=== PATIENT | male | born 1955 | race Caucasian/White ===

== ENCOUNTER 2018-10-22 21:51 | Outpatient (REF) | payer BC, SELFPAY ==
[2018-10-22 22:22] LABS: Anion Gap 10.1 mmol/L (3-11); BUN 12 mg/dL (7-18); CO2 26.9 mmol/L (21.0-32.0); CREATININE 1.14 mg/dL (0.70-1.30); Calcium 8.9 mg/dL (8.5-10.1); Chloride 102 mmol/L (98-107); Cholesterol 150 mg/dL (50-200); Glucose 98 mg/dL (70-100); HDL Cholesterol 61 mg/dL (40-60); LDL CHOLESTEROL 83 mg/dL (<100); Potassium 4.3 mmol/L (3.5-5.1); Sodium 139 mmol/L (136-145)
[2018-10-22 22:28] LABS: Triglyceride > 25 mg/dL (30-150)
== END 2018-10-22 22:11 ==
LOC: NCHCN 21:51
PROVIDERS: Internal Medicine; PCP Internal Medicine; Visit Provider Internal Medicine
DX: I10 Essential (primary) hypertension (principal); B07.8 Other viral warts; L98.9 Disorder of the skin and subcutaneous tissue, unspecified; H91.93 Unspecified hearing loss, bilateral; Z00.00 Encounter for general adult medical examination without abnormal findings; Z12.5 Encounter for screening for malignant neoplasm of prostate; N40.0 Benign prostatic hyperplasia without lower urinary tract symptoms
CPT/HCPCS: 80048; 80061; 83721; 84153

== ENCOUNTER 2021-06-02 16:20 | Outpatient (REF) | payer MEDICARE, BC, SELFPAY ==
[2021-06-02 21:08] LABS: HCT 43.3 % (40.0-50.0); HGB 14.6 g/dL (13.5-17.5); MCHC 33.7 % (32.0-36.0); MCV 85.9 fL (80-95); MPV 12.3 fL (8.0-11.0); Nucleated RBC 0 %; Platelet Count 218 10^3/uL (130-400); RBC 5.04 10^6/uL (4.36-5.78); RDW 15.4 % (11.8-14.1); RDW-SD 48.3 fL; WBC 7.27 10^3/uL (4.4-10.8)
[2021-06-02 21:33] LABS: ALT 24 U/L (16-63); AST 17 U/L (15-37); Albumin 4.4 g/dL (3.4-5.0); Alkaline Phosphatase 60 U/L (46-116); Anion Gap 7.9 mmol/L (3-11); BUN 18 mg/dL (7-18); Bilirubin, Total 0.6 mg/dL (0.2-1.0); CO2 28.1 mmol/L (21.0-32.0); CREATININE 1.1 mg/dL (0.70-1.30); Calcium 9.1 mg/dL (8.5-10.1); Chloride 106 mmol/L (98-107); Glucose 115 mg/dL (74-106); Potassium 4.5 mmol/L (3.5-5.1); Sodium 142 mmol/L (136-145); Total Protein 7.4 g/dL (6.4-8.2)
[2021-06-02 21:39] LABS: Absolute Lymphocyte Count 1.96 10^3/uL (1.2-3.4); Absolute Monocyte Count 1.82 10^3/uL (0.1-0.8); Absolute Neutrophil Count 3.49 10^3/uL (1.2-6.7); Diff Comment Manual Differential; RBC Morphology Normal
[2021-06-05 14:08] LABS: PSA, Screening 1.5 ng/mL (0.0-4.5)
== END 2021-06-02 16:21 | disposition home or self-care (01) ==
LOC: NCHCN 16:20
PROVIDERS: PCP Internal Medicine; Visit Provider Internal Medicine
DX: R03.0 Elevated blood-pressure reading, without diagnosis of hypertension (principal); Z12.5 Encounter for screening for malignant neoplasm of prostate
CPT/HCPCS: 80053; 84153; 85025

== ENCOUNTER 2024-02-28 15:52 | Outpatient (REF) | payer MEDICARE, BC, SELFPAY ==
[2024-02-28 17:27] LABS: Anion Gap 4.5 mmol/L (3-11); BUN 13 mg/dL (7-18); CO2 28.5 mmol/L (21.0-32.0); CREATININE 1.1 mg/dL (0.70-1.30); Calcium 9.5 mg/dL (8.5-10.1); Calculated LDL 59 mg/dL (<100); Chloride 104 mmol/L (98-107); Cholesterol 116 mg/dL (<200); Estimated GFR 72.67 (mL/min/1.73m2); Glucose 114 mg/dL (74-106); HDL Cholesterol 52 mg/dL (40-60); Potassium 4.6 mmol/L (3.5-5.1); Sodium 137 mmol/L (136-145); Triglyceride 29 mg/dL (<150)
== END 2024-02-28 15:53 | disposition home or self-care (01) ==
LOC: NCHCN 15:52
PROVIDERS: PCP Internal Medicine; Visit Provider Internal Medicine
DX: Z00.00 Encounter for general adult medical examination without abnormal findings (principal); R73.9 Hyperglycemia, unspecified
CPT/HCPCS: 80048; 80061

== ENCOUNTER 2025-05-17 15:26 | Outpatient (REF) | payer MEDICARE, BC, SELFPAY ==
[2025-05-17 15:47] LABS: HCT 44.2 % (40.0-50.0); HGB 15.0 g/dL (13.5-17.5); MCH 28.4 pg (27.0-33.0); MCHC 33.9 % (32.0-36.0); MCV 84 fL (80-95); MPV 12.0 fL (8.0-11.0); Platelet Count 243 10^3/uL (130-400); RBC 5.29 10^6/uL (4.36-5.78); RDW 16.7 % (11.8-14.1); RDW-SD 50.5 fL; WBC 9.38 10^3/uL (4.4-10.8)
[2025-05-17 16:14] LABS: ALT 21 U/L (16-63); AST 22 U/L (15-37); Albumin 4.5 g/dL (3.4-5.0); Alkaline Phosphatase 60 U/L (46-116); Anion Gap 8.4 mmol/L (3-11); BUN 15 mg/dL (7-18); Bilirubin, Total 0.5 mg/dL (0.2-1.0); CO2 27.6 mmol/L (21.0-32.0); Calcium 9.2 mg/dL (8.5-10.1); Chloride 103 mmol/L (98-107); Estimated GFR 72.22 (mL/min/1.73m2); Glucose 103 mg/dL (74-106); Potassium 4.8 mmol/L (3.5-5.1); Sodium 139 mmol/L (136-145); Total Protein 7.8 g/dL (6.4-8.2)
[2025-05-17 23:02] LABS: PSA, Screening 2.1 ng/mL (<=6.5)
== END 2025-05-17 15:27 | disposition home or self-care (01) ==
LOC: NCHCN 15:26
PROVIDERS: PCP Internal Medicine; Visit Provider Internal Medicine
DX: Z13.0 Encounter for screening for diseases of the blood and blood-forming organs and certain disorders involving the immune mechanism (principal); Z12.5 Encounter for screening for malignant neoplasm of prostate
CPT/HCPCS: 80053; 84153; 85027

== ENCOUNTER 2025-09-22 12:02 | Outpatient (REF) | payer MEDICARE, BC, SELFPAY ==
[2025-09-22 16:30] LABS: Anion Gap 9.3 mmol/L (3-11); BUN 16 mg/dL (9-23); CO2 26.7 mmol/L (20.0-31.0); Calcium 9.2 mg/dL (8.3-10.6); Chloride 104 mmol/L (98-107); Glucose 145 mg/dL (74-106); Potassium 4.2 mmol/L (3.5-5.1); Sodium 140 mmol/L (136-145)
== END 2025-09-22 12:03 | disposition home or self-care (01) ==
LOC: NCHCN 12:02
PROVIDERS: PCP Internal Medicine; Visit Provider Internal Medicine
DX: R03.0 Elevated blood-pressure reading, without diagnosis of hypertension (principal)
CPT/HCPCS: 80048

== ENCOUNTER 2025-09-24 12:11 | Outpatient (REF) | payer MEDICARE, BC, SELFPAY ==
[2025-09-24 18:17] LABS: Microalb ug/mg Crea 22.1 ug/mg Cr
== END 2025-09-24 12:12 | disposition home or self-care (01) ==
LOC: NCHCN 12:11
PROVIDERS: PCP Internal Medicine; Visit Provider Internal Medicine
DX: I10 Essential (primary) hypertension (principal)
CPT/HCPCS: 82043; 82570